=== PATIENT | female | born 1965 | race Caucasian/White ===

== ENCOUNTER 2019-07-09 16:30 | Outpatient (RCR) | payer OTHER, SELFPAY ==
--- NOTE | 2019-06-26 12:38 | ST.OPIE ---
Visit Care Team Role Provider Type Chalino Rojas MD Primary Care Provider Physician Specialty: Family Practice Address: [address], [address], [place], [address] Email: Sera Sumner MD Attending Provider Non-Staff Specialty: Neurology Address: [address] [place] [address], [id number] Email: Speech-Language Pathology Initial Evaluation UX DEVELOPER Cognitive/Memory Evaluation Start: 06/26/19 09:28 Freq: Status: Active Protocol: Document 06/26/19 09:28 LNK (Rec: 06/26/19 10:25 LNK [email or web address]) Evaluation of Cognition Session Time Visit Start Time 16:30 Visit Stop Time 17:20 Total Visit Minutes 50 Visit Information Visit Number 1 Insurance Information Prime Next Note Type Next Note Type Treatment Note Referral Referring Physician Dr. Villafana Reason for Referral memory loss Evaluation Assessment Type Cognitive Past Medical History Patient History Pt is a 53 year old female seen for a cognitive assessment. Pt reported that she was diagnosed with Multiple Sclerosis in 2010. Currently, her MS is controlled with medication; however she is reporting increasing difficulty with her memory. Pt described her memory loss as initially losing her ability to spell. Approximately 1 year ago she began having difficulty with dates and times. Most recently she did not remember that her was out of town for work. She does not remember the conversation she and her had regarding his trip. 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 Pt stated that no one at work has said anything to her about her memory; she questions the truth to that. Oral Motor Examination Oral Motor Exam Completed Yes: Informal observation indicated OM structures/ function WFL - Formal Assessment Standardized Test Cognitive Linguistic Quick Test (CLQT) Administration Complete Results The CLQT is comprised of 5 cognitive domains: Attention, Memory, Executive Functions, Language and Visuospatial Skills. Additionally there is a clock drawing Severity Scale and a Composite Severity Rating. The pt's Composite Severity Rating for all 5 domains was determined to be a mild cognitive impairment. However, her Memory domain was found to be moderately impaired and her Language domain was mildly impaired. All other domains were found to be WNL. - Cognition Orientation Skill Level WNL Attention Skill Level WNL Problem Solving/Reasoning/Judgment Skill Level WFL Divergent Naming Skill Level Moderately Impaired Category Naming/Identification Skill Level WNL Comment picture naming Clock Drawing Skill Level WFL - Memory Short Term Memory Skill Level Moderately Impaired Word Recall Skill Level Moderately Impaired Comment listing words within specific categries Story Recall Skill Level Severely Impaired Comment Retelling the story and answering questions about the story Long-Term Memory Skill Level WFL - Findings Cognitive/Memory Impressions Mariana Damon presented with an overall mild cognitive impairment with her greatest difficulty with memory and a mild impairment in language. Her language weakness was observed in story recall/ retelling and generating words based on category. She reports that she feels her memory is getting worse. She has independently developed strategies that have been helpful including writing everything down: lists/ calendar information, use of alarms, keeping things in specific places at home, etc. Recommendations Recommendations Cognitive therapy is recommended. Treatment Goals Short Term Goals 1) Pt will continue to develop strategies to assist pt in her memory at home and at work per her report 2) Pt will participate in exercises developed for memory via [employer], Brain Games, word puzzles, etc., per her report.
--- NOTE | 2019-06-26 13:41 | ST.OPPOC ---
Visit Care Team Role Provider Type Chalino Rojas MD Primary Care Provider Physician Address: [address], [address], [place], [address] Sera Sumner MD Attending Provider Non-Staff Address: [address] [place], [address] Speech Pathology Plan of Care Short Term Goals 1) Pt will continue to develop strategies to assist pt in her memory at home and at work per her report 2) Pt will participate in exercises developed for memory via [employer], Brain Games, word puzzles, etc., per her report. Please Sign and Return: I have reviewed this Plan of Care and certify that the skilled therapy services above are required to meet the patient?s needs. Physician Signature Date Printed Name and Credentials Clinical Instructor Signature Printed Name and Credentials
--- NOTE | 2019-07-10 10:38 | ST.OPTN ---
Visit Care Team Role Provider Type Chalino Rojas MD Primary Care Provider Physician Address: [address] [facility], [address], [place], [address] Sera Sumner MD Attending Provider Non-Staff Address: [address] [place] [address], [id number] HAND LAUNDERER Treatment Note HAND LAUNDERER Treatment Note Start: 06/26/19 09:28 Freq: Status: Active Protocol: Document 07/10/19 10:25 LNK (Rec: 07/10/19 10:38 LNK [email or web address]) Speech Pathology Treatment Note Session Time Visit Start Time 16:30 Visit Stop Time 17:20 Total Visit Minutes 50 Visit Information Visit Number Plan of Care Dates 06/25/19-09/25/19 Setting Treatment Setting Outpatient Care Visit Type Note Type Treatment Note Next Note Type Next Note Type Treatment Note General Information General Information Mariana Damon presented with an overall mild cognitive impairment with her greatest difficulty with memory and a mild impairment in language. Her language weakness was observed in story recall/ retelling and generating words based on category. She reports that she feels her momory is getting worse. She has independently developed stategies that have been helpful including writing everything down: lists/ calendar information, use of alarms, keeping things in specific places at home, etc. [ End ] Subjective Identification Type Name Identification Reconciled With Intake Sheet Chief Complaint(s) Cognitive Additional Areas of Concern Memory Rehab Expectation/Goals: Patient Goals Improve memory skills with learning to use memory strategies strategies Patient Knowledge/Awareness of HAND LAUNDERER Role Excellent in Treatment Objective Short Term Goals 1) Pt will continue to develop strategies to assist pt in her memory at home and at work per her report 2) Pt will participate in exercises developed for memory via Constant [employer], Brain Games, word puzzles, etc., per her report. Fpc Goals Mariana will improve memory via use of strategies in daily activities per pt report. Pt will participate in memory enhancing activities designed to increase memory function. Improvement noted via data collection and pt report. Treatment Activities Reviewed with Mariana her results on the CLQT. She was not surprised that memory was her greatest area of concern. The results were explained relative to her ADLs both at home and at work. Written internal and external memory strategies were provided and demonstrated for pt to use/ practice for HEP. Review of several memory applications for iPad were demonstrated to pt for her investigation at home. Assessment Patient Response to Treatment Excellent Rehab Potential Excellent Reviewed with Patient Goals,Home Exercise Program Patient/Caregiver Understanding Excellent Plan Amount of Therapy Recommended 2-3 Months Frequency of Treatment Once a Week Additional Areas of Treatment Memory skills
--- NOTE | 2019-08-21 13:24 | ST.OPDS ---
Visit Care Team Role Provider Type Chalino Rojas MD Primary Care Provider Physician Address: [address] [facility], [address], [place], [address] Sera Sumner MD Attending Provider Non-Staff Address: [address] [place], [address] MANAGER COLLEGE Treatment Note MANAGER COLLEGE Treatment Note Start: 06/26/19 09:28 Freq: Status: Active Protocol: Document 08/21/19 13:20 LNK (Rec: 08/21/19 13:24 LNK [email or web address]) Speech Pathology Treatment Note Visit Type Note Type Discharge Summary General Information General Information Mariana Damon presented with an overall mild cognitive impairment with her greatest difficulty with memory and a mild impairment in language. Her language weakness was observed in story recall/ retelling and generating words based on category. She reports that she feels her memory is getting worse. She has independently developed strategies that have been helpful including writing everything down: lists/ calendar information, use of alarms, keeping things in specific places at home, etc. [ End ] Subjective Chief Complaint(s) Cognitive Additional Areas of Concern Memory Rehab Expectation/Goals: Patient Goals Improve memory skills with learning to use memory strategies strategies Objective Short Term Goals 1) Pt will continue to develop strategies to assist pt in her memory at home and at work per her report 2) Pt will participate in exercises developed for memory via Constant Therapy, Brain Games, word puzzles, etc., per her report. Digital Sales Planner Goals Mariana will improve memory via use of strategies in daily activities per pt report. Pt will participate in memory enhancing activities designed to increase memory function. Improvement noted via data collection and pt report. Assessment Assessment of Improvement Mariana was seen for her initial evaluation and 1 follow up visit. She has not been seen at this clinic since her first therapy session. Her work environment relative to her memory skills was discussed at the last session. As > 30 days have passed since Mariana's last appointment, she will be discharged at this time. Plan Amount of Therapy Recommended No Further Therapy Frequency of Treatment No Further Therapy Therapy Recommendations Discharge from Speech Therapy
== END 2019-09-28 08:30 ==
LOC: SP 16:30
PROVIDERS: PCP Family Medicine; Visit Provider Psychiatry & Neurology Neurology
DX: G35 Multiple sclerosis (principal)
CPT/HCPCS: 92507; 92523

== ENCOUNTER → 2022-09-26 14:33 | Outpatient (CLI) | payer OTHER, SELFPAY ==
--- NOTE | 2022-09-26 14:36 | DI.RAD.S_ITS ---
PROCEDURE: XR CHEST 2V INDICATIONS: Cough TECHNIQUE: 2 views of the chest were acquired. COMPARISON: None. FINDINGS: Surgical changes and devices: None. Lungs and pleura: Lungs are clear. No pleural effusions or pneumothorax. Mediastinum: Mediastinal contours are normal. Heart size is normal. Bones and chest wall: No suspicious bony abnormalities. Soft tissues appear unremarkable. IMPRESSION: No acute cardiopulmonary findings Approved by: Truong Wesley M.D. on 09/26/2022 at 14:50
== END ==
PROVIDERS: PCP Family Medicine; Referring Provider Family Medicine; Visit Provider Family Medicine
DX: J20.9 Acute bronchitis, unspecified; R05.9 Cough, unspecified
CPT/HCPCS: 71046

== ENCOUNTER → 2024-02-13 | Outpatient (CLI) | payer OTHER, SELFPAY ==
--- NOTE | 2024-02-13 | DI.MG.S_ITS ---
UNILATERAL LEFT DIGITAL DIAGNOSTIC MAMMOGRAM 3D/2D WITH ADDITIONAL VIEWS: 02/13/2024 CLINICAL: Additional evaluation requested from prior study. Comparison is made to exams dated: 08/08/2023 mammogram, 01/18/2017 mammogram, and 01/14/2016 mammogram - [facility]. There are scattered areas of fibroglandular density in the left breast (category b / 25%-50% glandular tissue). There is a 1.1 cm oval mass in the left breast at 3 o'clock middle depth. No other significant masses or calcifications are seen in the breast. IMPRESSION: INCOMPLETE: NEEDS ADDITIONAL IMAGING EVALUATION The 1.1 cm oval mass in the left breast is indeterminate. An ultrasound is recommended. Based on the Tyrer Cuzick model (a risk assessment model) the patient's lifetime risk is 9.2% and her 10 year risk is 3.0%. According to the ACR, ACS, and NCCN guidelines, an annual breast MRI exam along with mammogram is recommended if the patient's lifetime risk is 20% or greater. This exam was interpreted at Station ID: [id number]. NOTE: For mammograms, a report in lay terms will be sent to the patient. Approximately 15% of breast malignancies will not be visualized mammographically. In the management of a palpable breast mass, a negative mammogram must not discourage biopsy of a clinically suspicious lesion. Electronically Signed By: Enoch Terry M.D. lc/:02/13/2024 09:39:03 ACR BI-RADS Category 0: Incomplete [id number]
--- NOTE | 2024-02-13 | DI.US.S_ITS ---
LIMITED ULTRASOUND OF LEFT BREAST: 02/13/2024 CLINICAL: Patient returns today to evaluate a focal asymmetry in the left breast. Comparison is made to exams dated: 02/13/2024 mammogram, 08/08/2023 mammogram, and 01/18/2017 mammogram - [facility]. Real-time ultrasound of the left breast 1-6 o'clock region was performed. Hilliard scale images of the real-time examination were reviewed. There is a benign 1 cm cyst in the left breast at 3 o'clock middle depth 8 cm from the nipple. This correlates with mammography findings. IMPRESSION: BENIGN There is no sonographic evidence of malignancy. The 1 cm cyst in the left breast is benign. Return to annual mammogram screening schedule is recommended. This exam was interpreted at Station ID: [id number]. Electronically Signed By: Enoch Terry M.D. lc/:02/13/2024 09:39:55 letter sent: Normal Exam Ultrasound BI-RADS: 2 Benign
== END ==
PROVIDERS: PCP Family Medicine; Referring Provider Family Medicine; Visit Provider Family Medicine
DX: R92.8 Other abnormal and inconclusive findings on diagnostic imaging of breast (principal); N60.02 Solitary cyst of left breast; R92.322 Mammographic fibroglandular density, left breast
CPT/HCPCS: 76642; 77065; G0279

== ENCOUNTER → 2024-12-22 06:56 | Outpatient (CLI) | payer OTHER, SELFPAY ==
--- NOTE | 2024-12-22 06:58 | DI.MRI.S_ITS ---
PROCEDURE: MR HAND RT WO CON INDICATIONS: SPRAIN METACARPOPHALANGEAL JOINT RT THUMB TECHNIQUE: Noncontrast oblique coronal T1 spin echo and T2 fast spin echo with fat saturation, axial and sagittal T2 fast spin echo with fat saturation, through the thumb. COMPARISON: [facility] Ronaldo White, RG, HAND MIN 3VW (RT), 11/23/2024, 16:36. FINDINGS: Image quality: Excellent. Bones: The bones are normally aligned, without marrow contusions or fractures. No intra-osseous lesions. Mild degenerative changes of the 1st carpometacarpal joint. Soft tissues: The ulnar collateral ligament at the 1st metacarpophalangeal joint is torn from its distal insertion with proximal displacement below the level of the adductor aponeurosis (Stener lesion). Grade 1 sprain of the radial collateral ligament with overlying edema. The extensor pollicis brevis and longus tendons appear to remain intact. Flexor pollicis longus tendon is intact. Volar joint capsule appears to be intact. There is soft tissue edema surrounding the 1st metacarpophalangeal joint including edema within the thenar musculature. The remaining visualized flexor and extensor tendons are intact. IMPRESSION: 1. Complete tearing of the ulnar collateral ligament at the 1st metacarpophalangeal joint from its distal insertion with proximal displacement below the abductor aponeurosis (Stener lesion). 2. Grade 1 sprain of the radial collateral ligament. 3. Edema within the thenar musculature may be reactive or secondary to low-grade muscle strains. Approved by: Steven Garner M.D. on 12/25/2024 at 9:43
== END ==
PROVIDERS: PCP Family Medicine; Referring Provider Orthopaedic Surgery; Visit Provider Orthopaedic Surgery
DX: S63.641A Sprain of metacarpophalangeal joint of right thumb, initial encounter (principal); S63.8X1A Sprain of other part of right wrist and hand, initial encounter; M25.441 Effusion, right hand
CPT/HCPCS: 73218